=== PATIENT | male | born 1995 | race Caucasian/White ===

== ENCOUNTER → 2016-10-13 | Day surgery (SDC) | payer BC ==
[~2016-10-13] MED LIST: ALBU6.7H INH; BUPIVACAINE HCL PF 0.5% 30 ML VIAL ONE; CLINDAMYCIN PHOS 600 MG/4 ML VIAL ONE; DICL75 PO; KETOROLAC TROMETHAMINE 30 MG/ML (IVP) VIAL IV PUSH ONE; LACTATED RINGER'S 1000 ML INJ 1,000 ML ONE; MEPERIDINE HCL 25 MG/ML VIAL ONE; MIDAZOLAM HCL 2 MG/2 ML VIAL ONE; ONDANSETRON HCL 4 MG/2 ML VIAL IV PUSH ONE; PROPOFOL 100 MG/10 ML INJ IV ONE; SODIUM CHLORIDE 0.9% SOLN 100 ML (PAB) BAG IV ONE; SYMB80AE INH
--- NOTE | 2016-10-15 11:37 | MP ---
cc: BAYRON LIU DATE OF SURGERY: 10/13/2016 PREOPERATIVE DIAGNOSIS Left knee painful intraosseous cyst with symptomatic resorption of tibial interference screw status post ACL reconstruction. POSTOPERATIVE DIAGNOSIS Left knee painful intraosseous cyst with symptomatic resorption of tibial interference screw status post ACL reconstruction. PROCEDURE Left knee open excision of intraosseous cyst with removal of tibial Arthrex interference screw. SURGEON Dr. Bayron Liu [employer] Bayron Archibald PA-C ANESTHESIA General. ESTIMATED BLOOD LOSS 10 cc. TOURNIQUET TIME Zero minutes. JUSTIFICATION This patient is a 21-year-old male who has undergone previous left knee ACL allograft reconstruction. He has developed symptomatic painful swelling along the region of the tibial incision and clinical exam as well as MRI confirmed the above-named findings. The patient was counseled as to the risks, benefits and alternatives to the above-named proposed surgical procedure. He did wish to proceed with surgery. PROCEDURE IN DETAIL Written consent was obtained. The patient was identified by name, taken to the operating room and placed supine on the operating table. General anesthesia was administered as well as one gram of IV Ancef. The left lower extremity was prepped and draped using isopropyl alcohol, Hibiclens solution and DuraPrep solution. After a timeout was performed, a longitudinal incision was made in the anteromedial aspect of the left proximal tibia in line with the prior incision. Circumferential dissection was carried out in the region of the proximal tibia and a 15 blade scalpel was used to excise the cystic swelling and cystic mass. The excision included the intraosseous portion of the tibial tunnel. There was evidence of multiple resorbing tibial interference screw fragments which were also removed and excised. The wound was thoroughly irrigated with sterile saline solution. The periosteal layer was then closed primarily with 0 Vicryl suture. The subcutaneous layer with 3-0 Vicryl suture and skin incision closed with Dermabond. Sterile dressing was applied. The patient tolerated the procedure with no intraoperative complication noted. Bayron Archibald, physician botany laboratory assistant certified, was present during the entire procedure to include patient positioning and the procedure itself. The medical necessity of a physician botany laboratory assistant was indicated in this case due to complexity of the procedure. He assisted with appropriate manipulation of the leg for exposure purposes and also retraction of muscle, tendon and bone. He assisted with excision of the cyst and also closure of the wound. MD KATIANA Calderón /4:56 PM /11:31 AM
== END | disposition home or self-care (01) ==
LOC: ESDC 13:45
PROVIDERS: ATTEND Orthopaedic Surgery Sports Medicine
DX: T84.84XA Pain due to internal orthopedic prosthetic devices, implants and grafts, initial encounter (principal); M25.862 Other specified joint disorders, left knee
CPT/HCPCS: 01400; 20680; 27345; 88304; 88311; J1885; J2175; J2250; J2405; J3010; J7120